=== PATIENT | male | born 1990 | race Two or more races ===

== ENCOUNTER 2025-08-24 12:38 | Emergency (ER) | payer MEDICAID, SELFPAY ==
[2025-08-24 13:03] VITALS: BP 152/91; PULSE 62; RESP 20; TEMP 36.7; O2SAT 99; BMI 25.8
--- NOTE | 2025-08-24 13:36 | XR_ITS ---
EXAMINATION: PA lateral chest 2 views TECHNIQUE: Upright PA lateral chest 2 views Date and time: August 24, 2025, 1336 hours INDICATIONS: Right-sided chest pain today. FINDINGS: Normal heart size Lungs are clear. Intact osseous structures IMPRESSION: No active disease
--- NOTE | 2025-08-24 13:36 | EKG_ITS ---
[facility] Test Date: 2025-08-24 Pat Name: KLARISSA GUZMAN Department: Room: - Gender: Male [employer] Captain: : 1990 Requested By: Shonna Santacruz Order Number: [id number] Reading MD: Shonna Santacruz Measurements Intervals [place] Rate: 56 P: -13 RI: 138 QRS: 16 QRSD: 94 T: 13 QT: 408 QTc: 395 Interpretive Statements SINUS BRADYCARDIA Compared to ECG 09/08/2023 13:52:28 No significant changes /store/S0/[id number].pdf
[2025-08-24] MEDS: METOCLOPRAMIDE 5 MG TABLET 10 MG PO (13:47)
[2025-08-24] MEDS: ACETAMINOPHEN 500 MG TABLET 1000 MG PO (13:47)
[2025-08-24] MEDS: KETOROLAC INJ 60 MG/2 ML VIAL IM (13:48)
--- NOTE | 2025-08-24 14:35 | PD.EDANX ---
ED Anxiety RME/HPI General Chief Complaint: Anxiety Stated Complaint: SOB, anxiety, spine pain Time Seen by Provider: 08/24/25 12:42 Arrival date/time: 08/24/25 12:38 This is a 35-year-old male that comes into the emergency room with complaints of shortness of breath while sweeping. Patient also states that he is having mid posterior right sided back pain. Patient states that this all happened while he was sleeping. Patient states that he got so short of breath and started having chest pain. I did ask patient about anxiety and he says that he does have anxiety as well. Related Data Previous Rx's ?Medication ?Instructions ?Recorded aluminum-mag hydroxide-simethicone 15 ml PO QID PRN dyspepsia #300 mL 10/06/20 200 mg-200 mg-20 mg/5 mL oral susp (Maalox Advanced) lidocaine HCl 2 % mucosal solution 15 ml PO .as need #100 mL 10/06/20 (Lidocaine Viscous) Allergies Allergy/AdvReac Type Severity Reaction Status Date / Time No Known Allergies Allergy Verified 08/24/25 12:41 Review of Systems Review of Systems Systems Reviewed: All systems reviewed, normal except as documented Past Medical History Past Medical History Comments PMH COMMENT: Denies ED Exam Narrative Physical exam: VITAL SIGNS: Reviewed. GENERAL APPEARANCE: Alert and interactive, follows commands, no acute distress, HEAD AND FACE: Non-traumatic. ENT: PERRL, conjuctiva pink and clear, eyelid no trauma, Mucous membrane moist. NECK: Supple, nontender, no nuchal rigidity. CHEST: No tenderness, no crepitus, no paradoxical movement, no retractions. LUNGS: Clear, well ventilated, symmetric, no rales, no wheezing, no rhonchi, no stridor, good breath sounds bilaterally. HEART: Regular rate, regular rhythm, no murmur, no gallops. ABDOMEN: Soft, nondistended, no guarding, nontender, no rebound, no masses, NEUROLOGICAL: Gross motor function intact sensory function intact, Appropriate for age. MUSCULOSKELETAL: low back nontender, full range of motion. EXTREMITIES: No redness no swelling no skin breakdown on bilateral foot and leg. Distal neurovascular status intact bilateral foot SKIN: Color pink, dry, no rash, no lacerations, no abrasions, no contusions. Course Quality Measures none Orders Category Date Time Status EKG (ED ONLY) *Do not use* NOW Care 08/24/25 13:36 Completed EKG (ED Only) Stat Exams 08/24/25 13:36 Draft XR chest 2V Stat Exams 08/24/25 13:36 Completed Acetaminophen Tab [Tylenol ES Tab] Med 08/24/25 13:36 Discontinued 1,000 mg PO X1 ONE Ketorolac Inj [Toradol Inj] Med 08/24/25 13:36 Discontinued 60 mg IM X1 ONE Metoclopramide [Reglan] Med 08/24/25 13:36 Discontinued 10 mg PO X1 ONE Vital Signs Vital signs: Vital Signs Temperature 98.0 F 08/24/25 13:03 Pulse Rate 62 08/24/25 13:03 Respiratory Rate 20 08/24/25 13:03 Blood Pressure 152/91 H 08/24/25 13:03 Pulse Oximetry (%) 99 08/24/25 13:03 Oxygen Delivery Method Room Air 08/24/25 13:03 PROCEDURES: EKG Interpretation #1: Date of EK08/24/25 Time of EK:51 Rate: 56 Interpretation: Interpreted by me (Sinus rhythm sinus bradycardia) EKG Impression: No ectopy, No ischemic changes and Normal intervals Anxiety MDM Narrative MDM Narrative: Patient feels better after Toradol, Tylenol and Zofran. chest x ray: FINDINGS: Normal heart size Lungs are clear. Intact osseous structures IMPRESSION: No active disease EKG's shows sinus rhythm sinus bradycardia. Patient feels better and would like to go home. Patient states he will follow-up with primary doctor in 1 to 2 days. Come back to the emergency room symptoms change or worsen. Patient verbalized understanding feels comfortable plan of care. Dragon dictation: Although this document has been carefully reviewed, there may still be some phonetic and other typographical errors. These errors are purely grammatical due to imperfections in the software program and should not be construed in any way to compromise the substance of the patient's medical care during this visit. Patient data External records reviewed:: [facility] previous records Clinical information provided by:: patient Social determinants that could affect healthcare access:: none Patient has the following chronic illnesses:: none How is presenting disease/condition affected by chronic disease/condition?: no chronic disease Evaluation data The following diagnostics were reviewed and interpreted by me:: radiology exam(s) and EKG tracing(s) Lab and/or radiology exams considered but not ordered:: see note Interpretation Summary: see note Medications / Prescriptions Medications or Prescriptions considered but not ordered:: none Medication administrations:: Medication Administration History Discontinued Medications Acetaminophen (Acetaminophen 500 Mg Tablet) 1,000 mg PO X1 ONE Stop: 08/24/25 13:37 Last Admin: 08/24/25 13:47 Dose: 1,000 mg Documented By: MARY Ketorolac Tromethamine (Ketorolac Inj 60 Mg/2 Ml Vial) 60 mg IM X1 ONE Stop: 08/24/25 13:37 Last Admin: 08/24/25 13:48 Dose: 60 mg Documented By: MARY Metoclopramide HCl (Metoclopramide 5 Mg Tablet) 10 mg PO X1 ONE Stop: 08/24/25 13:37 Last Admin: 08/24/25 13:47 Dose: 10 mg Documented By: MARY Consultations Consultation(s) initiated? (list below): No Diagnosis Most likely diagnosis given after review of the tests above:: anxiety Admission Indicated Admission indicated?: not indicated Admission Request Was there a request for admission?: No Disposition Plan Disposition Plan: Discharge Discharge Attestation Discharge Attestation: The patient and all family members were given an opportunity to ask questions and understood the discharge instructions. Discharge instructions specifically effects, indications for sooner follow up or return to the emergency department, and the expected course of current diagnosis. Patient condition: Stable Discharge Plan Plan Patient Disposition: HOME (Self Care) Patient condition on transfer: Stable Prescriptions/Referrals Prescriptions/Med Rec: No Action Lidocaine Viscous 2 % solution 15 ml PO .as need Qty: 100 0RF alum-mag hydroxide-simeth [Maalox Advanced] 200-200-20 mg/5 mL suspension 15 ml PO QID PRN (Reason: dyspepsia) Qty: 300 0RF Rx Instructions: administer between meals and at bedtime Referrals: No Primary/Family,Physician [Primary Care Provider] - In 1 week Problem List Clinical Impression: Chest pain, Anxiety Patient/Caregiver Discharge Instructions Discharge Activity: activity as tolerated Education Materials: ED Anxiety Reaction Additional Instructions: follow up with primary provider in 1-2 days. Come back to ED if symptoms change or worsen Print Language: Sinhala Stand Alone Forms: Pilar Award Info., Patient Portal Info Letter PA/KELLY Supervising Physician PA/KELLY Supervising Physician: jose cruz
== END 2025-08-24 15:07 | disposition home or self-care (01) ==
PROVIDERS: Emergency Provider Nurse Practitioner Family
DX: R07.9 Chest pain, unspecified (principal); F41.9 Anxiety disorder, unspecified; R00.1 Bradycardia, unspecified
CPT/HCPCS: 71046; 93005; 96372; 99283; J1885; A9270